=== PATIENT | male | born 1945 | race Caucasian/White ===

== ENCOUNTER → 2025-02-10 10:54 | Outpatient (REF) | payer OTHER, SELFPAY | LOC: HWRAD 10:54 | PROVIDERS: ATTENDING PHYSICIAN Physician Assistant; FAMILY PHYSICIAN Nurse Practitioner | DX: R20.2 Paresthesia of skin (principal); M25.562 Pain in left knee; M25.561 Pain in right knee | CPT/HCPCS: 72110; 73564 ==